=== PATIENT | male | born 1980 | race Native Hawaiian/Other Pacific Islander ===

== ENCOUNTER 2020-11-09 01:37 | Emergency (ER) | payer OTHER ==
[~2020-11-09] VITALS: Ht 175.3 cm; Wt 99.8 kg
[2020-11-09] MEDS ORDERED: SUDOGEST30 MG PO (01:47)
[2020-11-09] MEDS ORDERED: PROAIR DIGIHAL90 MCG INH (01:48)
== END 2020-11-09 04:50 | disposition home or self-care (01) ==
LOC: ED 01:37
DX: J45.901 Unspecified asthma with (acute) exacerbation (principal); J06.9 Acute upper respiratory infection, unspecified; J45.909 Unspecified asthma, uncomplicated; M10.9 Gout, unspecified; F17.200 Nicotine dependence, unspecified, uncomplicated; Z79.899 Other long term (current) drug therapy
CPT/HCPCS: 71045; 94640; 99284-25